=== PATIENT | female | born 1995 | race Caucasian/White ===

== ENCOUNTER 2021-10-04 18:17 | Inpatient (IN) | payer BC, MEDICAID ==
[~2021-10-04] VITALS: Ht 162.6 cm; Wt 135.2 kg
[2021-10-04] MEDS ORDERED: BUTORPHANOL TARTRATE 2 MG/ML VIAL IV PRN (19:45)
[2021-10-04] MEDS ORDERED: RHO(D) IMMUNE GLOBULIN 300 MCG/SYR IM ONE (19:45)
[2021-10-04] MEDS ORDERED: NALOXONE HCL 0.4 MG/ML 1ML VIAL IM PRN (19:45)
[2021-10-04] MEDS ORDERED: LIDOCAINE HCL 1% 20ML VIAL (Pyxis) INJ INFIL SCH (19:45)
[2021-10-04] MEDS ORDERED: DEXT 5%/LR + PITOCIN 20UNITS/L 1,000 ML IV SCH (19:45)
[2021-10-04] MEDS ORDERED: PREN1TAB78 PO (19:48)
[2021-10-04] MEDS ORDERED: LABETALOL HCL 5MG/ML VIAL 20ML IV PRN ×3 (20:00)
[2021-10-04] MEDS ORDERED: ROPIVACAINE HCL/PF EPIDURAL 200 ML EPI SCH (20:45)
[2021-10-04] MEDS ORDERED: MAGNESIUM 4 G PREMIX 100 ML IV NR (21:00)
[2021-10-04] MEDS ORDERED: PENICILLIN G POTASSIUM 5 MMU in DEXT 5% WATER 100 ML IV ONE (21:00)
[2021-10-04 21:21] LABS: BASOPHILS % 0.7 % (0.0-2.0); EOSINOPHILS % 0.3 % (0.0-5.0); HEMOGLOBIN. 12.8 g/dL (12.0-16.0); LYMPHOCYTES % 30.7 % (20.0-50.0); MEAN CORPUSCULAR HEMOGLOBIN 29.3 pg (28.0-32.0); MEAN CORPUSCULAR VOLUME 87.3 fL (81.0-99.0); MEAN PLATELET VOLUME 11.3 fl (7.4-10.4); MONOCYTES % 9.1 % (2.0-8.0); NEUTROPHILS % 59.2 % (40.0-76.0); PLATELET 175 x1000/uL (130-400); RED BLOOD CELL COUNT 4.36 mill/uL (4.2-5.4); RED CELL DISTRIBUTION WIDTH 15.4 % (11.6-14.6)
[2021-10-04 21:38] LABS: CLARITY URINE CLEAR (CLEAR); COLOR URINE YELLOW (YELLOW); KETONES URINE NEGATIVE (NEGATIVE); LEUKOCYTE ESTERASE URINE NEGATIVE (NEGATIVE); NITRITE URINE NEGATIVE (NEGATIVE); OCCULT BLOOD URINE NEGATIVE (NEGATIVE); PH URINE 6.5 (4.5-8.0); PROTEIN URINE 4+ (NEGATIVE); SPECIFIC GRAVITY URINE 1.024 (1.005-1.030); UROBILINOGEN URINE 0.2 E.U./dL (0.2-1.0)
[2021-10-04] MEDS: MAGNESIUM 20 G PREMIX (L & D) 500 ML IV SCH ×2 (21:47→22:01)
[2021-10-04 21:51] LABS: *AMPHETAMINES SCREEN URINE NEGATIVE (NEGATIVE); *BENZODIAZEPINES SCREEN URINE NEGATIVE (NEGATIVE); *COCAINE SCREEN URINE NEGATIVE (NEGATIVE)
[2021-10-04 21:53] LABS: CANNABINOID URINE SCREEN NEGATIVE (NEGATIVE); METHADONE URINE SCREEN NEGATIVE (NEGATIVE); OPIATES URINE SCREEN NEGATIVE (NEGATIVE); PHENCYCLIDINE URINE SCREEN NEGATIVE (NEGATIVE)
[2021-10-04 22:11] LABS: *BARBITURATES SCREEN URINE NEGATIVE (NEGATIVE)
[2021-10-04] MEDS: MISOPROSTOL 100MCG TABLET VG PRN (22:12)
[2021-10-04] MEDS: DEXT 5%/LACTATED RINGERS 1,000 ML IV SCH (23:29)
[2021-10-05 00:21] LABS: INR 0.9; PARTIAL THROMBOPLASTIN TIME 27.4 sec (23.4-31.0); PROTHROMBIN TIME 9.3 sec (9.6-11.0)
[2021-10-05] MEDS ORDERED: LABETALOL HCL 5MG/ML VIAL 20ML IV PRN ×2 (01:30)
[2021-10-05] MEDS: LABETALOL HCL 5MG/ML VIAL 20ML IV PRN ×2 (02:17→07:05)
[2021-10-05] MEDS: PENICILLIN G POTASSIUM 2.5 MMU in DEXTROSE 5% WATER 50 ML IV SCH ×3 (02:27→09:00)
[2021-10-05] MEDS: MISOPROSTOL 100MCG TABLET VG PRN ×2 (03:22→06:26)
[2021-10-05] MEDS ORDERED: PHENYLEPHRINE HCL 10 MG/ML 1ML (IV VIAL) IV ONE (08:43)
[2021-10-05] MEDS ORDERED: EPHEDRINE SULFATE 50MG/ML VIAL ONE (08:43)
[2021-10-05] MEDS ORDERED: LIDOCAINE HCL 2%/EPINEPHRINE 1:100,000 20 ML VIAL INFIL ONE (08:43)
[2021-10-05] MEDS: DEXT 5%/LACTATED RINGERS 1,000 ML IV SCH (09:51)
[2021-10-05] MEDS: MAGNESIUM 20 G PREMIX (L & D) 500 ML IV SCH (11:48)
[2021-10-05] MEDS ORDERED: BISACODYL 10MG SUPP PR PRN (13:15)
[2021-10-05] MEDS ORDERED: MAGNESIUM 20 G PREMIX (L & D) 500 ML IV SCH (13:15)
[2021-10-05] MEDS ORDERED: BENZOCAINE/LANOLIN/ALOE VERA SPRAY TOP PRN (13:15)
[2021-10-05] MEDS ORDERED: GLYCERIN/WITCH HAZEL LEAF MEDICATED PAD TOP PRN (13:15)
[2021-10-05] MEDS ORDERED: HEMORRHOIDAL SUPP PR PRN (13:15)
[2021-10-05] MEDS ORDERED: DIPHENHYDRAMINE 25MG CAPSULE PO PRN (13:15)
[2021-10-05] MEDS ORDERED: RHO(D) IMMUNE GLOBULIN 300 MCG/SYR IM PRN (13:15)
[2021-10-05] MEDS ORDERED: ACETAMINOPHEN WITH CODEINE 300/30MG TABLET PO PRN (13:15)
[2021-10-05] MEDS ORDERED: IBUPROFEN 400MG TABLET PO PRN (13:15)
[2021-10-05] MEDS ORDERED: DEXT 5%/LR + PITOCIN 20UNITS/L 1,000 ML IV SCH (13:15)
[2021-10-05 15:00] VITALS: BP 134/84
[2021-10-05 15:30] VITALS: BP 140/85
[2021-10-05 16:14] VITALS: BP 150/91
[2021-10-05 20:00] VITALS: BP 160/98
[2021-10-05 22:10] VITALS: BP 146/85
[2021-10-05] MEDS: DOCUSATE SODIUM 100MG CAPSULE PO SCH (22:16)
[2021-10-05] MEDS: IBUPROFEN 800MG TABLET PO PRN (22:16)
[2021-10-05] MEDS: LABETALOL HCL 200MG TABLET PO SCH (22:16)
[2021-10-05] MEDS: MAGNESIUM/ALUMINUM HYDROXIDE/SIMETHICONE 30ML UDC PO SCH (22:17)
[2021-10-05] MEDS: SIMETHICONE 80MG TABLET CHEW PO SCH (22:17)
[2021-10-05 23:30] VITALS: BP 125/62
[2021-10-06] VITALS (7 sets, daily range): BP systolic 121–143; BP diastolic 66–88
[2021-10-06] MEDS: IBUPROFEN 800MG TABLET PO PRN ×2 (04:23→22:14)
[2021-10-06] MEDS: LABETALOL HCL 200MG TABLET PO SCH ×3 (06:19→22:13)
[2021-10-06 07:34] LABS: BASOPHILS % 0.4 % (0.0-2.0); EOSINOPHILS % 0.4 % (0.0-5.0); HEMATOCRIT. 35.8 % (36.0-48.0); LYMPHOCYTES % 31.6 % (20.0-50.0); MEAN CORPUSCULAR HEMOGLOBIN 29.5 pg (28.0-32.0); MEAN CORPUSCULAR VOLUME 87.9 fL (81.0-99.0); MEAN PLATELET VOLUME 11.2 fl (7.4-10.4); NEUTROPHILS % 58.6 % (40.0-76.0); PLATELET 157 x1000/uL (130-400); RED BLOOD CELL COUNT 4.07 mill/uL (4.2-5.4); RED CELL DISTRIBUTION WIDTH 15.5 % (11.6-14.6)
[2021-10-06] MEDS: PRENATAL VIT/FE FUMARATE/FA TABLET PO SCH (08:21)
[2021-10-06] MEDS: SIMETHICONE 80MG TABLET CHEW PO SCH ×3 (08:21→22:14)
[2021-10-06] MEDS: MAGNESIUM/ALUMINUM HYDROXIDE/SIMETHICONE 30ML UDC PO SCH ×3 (08:21→22:14)
[2021-10-06] MEDS: FERROUS SULFATE 325MG TABLET PO SCH ×2 (08:21→13:10)
[2021-10-06 14:52] LABS: HEPATITIS B SURFACE ANTIGEN NEGATIVE
[2021-10-06] MEDS: DOCUSATE SODIUM 100MG CAPSULE PO SCH (22:14)
[2021-10-07 04:00] VITALS: BP 124/72
[2021-10-07] MEDS: IBUPROFEN 800MG TABLET PO PRN (04:36)
[2021-10-07 06:00] VITALS: BP 128/73
[2021-10-07] MEDS: LABETALOL HCL 200MG TABLET PO SCH (06:10)
[2021-10-07 07:45] VITALS: BP 124/77
[2021-10-07] MEDS: MAGNESIUM/ALUMINUM HYDROXIDE/SIMETHICONE 30ML UDC PO SCH (08:47)
[2021-10-07] MEDS: PRENATAL VIT/FE FUMARATE/FA TABLET PO SCH (08:47)
[2021-10-07] MEDS: FERROUS SULFATE 325MG TABLET PO SCH (08:47)
[2021-10-07] MEDS: SIMETHICONE 80MG TABLET CHEW PO SCH (08:48)
== END 2021-10-07 11:45 | disposition home or self-care (01) | DRG 807 ==
LOC: OBSVTOIN 18:17 → 8 EST LDRP 18:17 → 8EST 10-05 14:40
PROVIDERS: ADMIT Obstetrics & Gynecology; ATTEND Obstetrics & Gynecology
PROC: 10E0XZZ Delivery of Products of Conception, External Approach (ICD-10-PCS; principal; 2021-10-05)
PROC: 3E0R3BZ Introduction of Anesthetic Agent into Spinal Canal, Percutaneous Approach (ICD-10-PCS; 2021-10-05)
PROC: 00HU33Z Insertion of Infusion Device into Spinal Canal, Percutaneous Approach (ICD-10-PCS; 2021-10-05)
DX: O14.94 Unspecified pre-eclampsia, complicating childbirth (principal); Z37.0 Single live birth; O13.4 Gestational [pregnancy-induced] hypertension without significant proteinuria, complicating childbirth; O77.0 Labor and delivery complicated by meconium in amniotic fluid; Z20.822 Contact with and (suspected) exposure to COVID-19; Z3A.38 38 weeks gestation of pregnancy
CPT/HCPCS: 36415; 76805; 76818; 80305; 81003; 83735; 85025; 86592; 86703; 86762; 86850; 86900; 87340; 87426; 88307; 99281; J2370; J2540; J2590; J2795; J3475; J3490; J7060; J7121